=== PATIENT | male | born 1995 | race African-American/Black ===

== ENCOUNTER 2017-04-08 20:56 | Emergency (ER) | payer OTHER ==
[~2017-04-08] VITALS: Ht 170.2 cm; Wt 83.9 kg
[2017-04-08 20:56] VITALS: BP 142/73
[~2017-04-08 20:56] MED LIST: AMOXICILLIN875 MG PO; FLONASE 0.05%50 MCG NASAL; NOHOMEMEDICATIONS
== END 2017-04-08 21:29 | disposition home or self-care (01) ==
LOC: ER 20:56
DX: R09.81 Nasal congestion (principal); F15.10 Other stimulant abuse, uncomplicated